=== PATIENT | male | born 1955 | race Caucasian/White ===

== ENCOUNTER 2022-04-08 05:50 | Emergency (ER) | payer MEDICARE ==
[~2022-04-08 05:50] MED LIST: Ketorolac Tromethamine 30 MG/ML VIAL ONE; Sodium Chloride 0.9% 1,000 ML ONE
[2022-04-08 07:16] LABS: Anion Gap 15 mmol/L (10-20); BUN (Urea Nitrogen) 21 mg/dL (8.4-25.7); Calc. Creatinine Clearance 0 mL/min (70-130); Carbon Dioxide 20 mmol/L (23-31); Chloride 108 mmol/L (98-107); Estimated GFR 53; Glucose 179 mg/dL (80-115); Potassium 3.5 mmol/L (3.5-5.1); Sodium 139 mmol/L (136-145)
[2022-04-08 07:17] LABS: ALT (SGPT) 12 U/L (8-55); AST (SGOT) 13 U/L (5-34); Albumin 3.9 g/dL (3.4-4.8); Alkaline Phosphatase 32 U/L (40-110); Bilirubin, Total 0.8 mg/dL (0.2-1.2); Calcium 8.7 mg/dL (7.8-10.44); Globulin 2.2 g/dL (2.4-3.5); Protein, Total 6.1 g/dL (5.8-8.1)
[2022-04-08 07:18] LABS: Hemoglobin 12.2 g/dL (14.0-18.0); Mean Corpuscular HGB CONC 34.7 g/dL (32.0-36.0); Mean Corpuscular Hemoglobin 35.3 pg (27.0-31.0); Red Blood Cell (RBC) Count 3.47 mill/uL (4.70-6.10); White Blood Cell (WBC) Count 11.2 thou/uL (4.8-10.8)
[2022-04-08 07:19] LABS: %Eosinophils 0.5 % (0.0-10.0); %Lymphocytes 7.3 % (21.0-51.0); %Monocytes 6.2 % (0.0-10.0); %Neutrophils 85.4 % (42.0-75.0); Manual Diff?? YES; Mean Platelet Volume 12.1 fL (7.4-10.4); Platelet Count 89 thou/uL (130-400); RBC Distribution Width 12.2 % (11.5-14.5)
[2022-04-08 07:20] LABS: #Basophils 0.1 thou/uL (0.0-0.2); #Eosinphils 0.1 thou/uL (0.0-0.7); #Monocytes 0.7 thou/uL (0.11-0.59); #Neutrophils 9.6 thou/uL (1.40-6.50); %Basophils 0.6 % (0.0-1.0); MDiff Complete? YES; Macrocytosis SLIGHT = 6-15 cells (100X) (0-5/hpf)
[2022-04-08 07:21] LABS: Clarity Clear (Clear); Glucose, Urine (Dipstick) Negative (Negative); Ketone, Urine 15 mg/dL (Negative); Leukocyte Trace (Negative); Nitrite Negative (Negative); Protein, Urine (Dipstick) Negative (Neg-Trace); Specific Gravity, Urine 1.025 (1.005-1.030)
[2022-04-08 07:22] LABS: Bacteria/HPF None Seen HPF (None Seen); Bilirubin Negative (Negative); Blood, Urine Trace (Negative); RBC/HPF 0-3 HPF (0-3); Squamous Epithelial None Seen HPF (0-3); Urobilinogen 0.2 mg/dL (Less than 2); WBC/HPF 0-3 HPF (0-3)
[2022-04-08 07:23] LABS: Lactic Acid 0.8 mmol/L (0.5-2.2)
== END 2022-04-08 14:13 | disposition home or self-care (01) ==
LOC: NAV ERS 05:50
DX: N13.2 Hydronephrosis with renal and ureteral calculous obstruction (principal)
CPT/HCPCS: 74176; 80053; 81003; 81015; 83605; 84484; 85025; 96374; J1885; J7050

== ENCOUNTER 2022-04-22 09:23 | Outpatient (CLI) | payer MEDICARE | END 2022-04-22 09:24 | disposition home or self-care (01) | LOC: NAV RAD 09:23 | PROVIDERS: ATTEND Urology | DX: N20.0 Calculus of kidney (principal); K59.00 Constipation, unspecified | CPT/HCPCS: 74018 ==

== ENCOUNTER 2022-05-08 13:30 | Outpatient (CLI) | payer MEDICARE | END 2022-05-08 13:31 | disposition home or self-care (01) | LOC: NAV RAD 13:30 | PROVIDERS: ATTEND Urology | DX: N20.1 Calculus of ureter (principal) | CPT/HCPCS: 74018 ==

== ENCOUNTER 2022-06-12 15:03 | Outpatient (CLI) | payer MEDICARE | END 2022-06-12 15:04 | disposition home or self-care (01) | LOC: NAV CT 15:03 | PROVIDERS: ATTEND Urology | DX: N20.0 Calculus of kidney (principal); N40.0 Benign prostatic hyperplasia without lower urinary tract symptoms; N28.1 Cyst of kidney, acquired; K76.89 Other specified diseases of liver; K57.30 Diverticulosis of large intestine without perforation or abscess without bleeding; N20.1 Calculus of ureter | CPT/HCPCS: 74176 ==

== ENCOUNTER 2022-07-15 18:39 | Outpatient (CLI) | payer MEDICARE | END 2022-07-15 18:40 | disposition home or self-care (01) | LOC: NAV RAD 18:39 | PROVIDERS: ATTEND Urology | DX: N20.1 Calculus of ureter (principal); N28.89 Other specified disorders of kidney and ureter | CPT/HCPCS: 74018 ==